=== PATIENT | female | born 1985 | race Caucasian/White ===

== ENCOUNTER 2016-07-23 16:20 | Emergency (ER) | payer OTHER ==
[~2016-07-23] VITALS: Ht 162.5 cm
[~2016-07-23 16:20] MED LIST: ALBUTEROL0.09 MG/A2 IH; DELTASONE20 M1 PO; FLONASE 0.05% 121 EA NAS; IBU-8800 MG PO; LIDEX0.05% T; MEDROL DOSEPAK4 MG PO; MOTRIN 800 MG E4 TAB PO; MOTRIN800 MG PO; MULTI VITAMINS1 TAB PO; PERCOCET 325 MG1 TA6 PO; PREDNISONE10 MG PO; PRENATAL1 TA1; PROAIR HFA8.5 GM INH; ROBAXIN750 MG PO; ZITHROMAX250 MG PO; ZYRTEC ALLERGY10 MG PO
[2016-07-23] MEDS ORDERED: POTASSIUM GLUC550 M1 PO (16:29)
== END 2016-07-23 18:33 | disposition home or self-care (01) ==
LOC: ED 16:20
DX: R51 Headache (principal); R03.0 Elevated blood-pressure reading, without diagnosis of hypertension; Z88.0 Allergy status to penicillin; Z88.1 Allergy status to other antibiotic agents; Z88.6 Allergy status to analgesic agent; Z79.899 Other long term (current) drug therapy

== ENCOUNTER → 2019-03-13 | Outpatient (CLI) | payer OTHER ==
[~2019-03-13] MED LIST changes: +POTASSIUM GLUC550 M1 PO
--- NOTE | ~2019-03-13 | EKG ---
[place], [place] ELECTROCARDIOGRAM REPORT NAME: LUCA FORDE UNIT #: [id number] ROOM: DOCTOR: EPIPHANY DRAFT REPORT BIRTHDATE: [address] [facility] Test Date: 2019-03-13 Test Time: 09:41:23 Pat Name: LUCA FORDE Department: Room: Gender: F [employer] Operator: : 1985 Requested By: THIEN BUSTAMANTE Order Number: [id number] Reading MD: Kraig Andino MD Measurements Intervals [place] Rate: 65 P: 35 ID: 106 QRS: 29 QRSD: 101 T: -1 QT: 425 QTc: 442 Interpretive Statements Sinus rhythm Short ID interval Borderline inferior Q waves No previous ECG available for comparison Electronically Signed On 03-13-2019 12:40:15 PST by Kraig Andino MD CM:EKGRPT:ELECTROCARDIOGRAM REPORT [id number] THIEN BUSTAMANTE EPIPHANY DRAFT REPORT THIEN BUSTAMANTE
== END | disposition home or self-care (01) ==
LOC: RAD 09:09
DX: I10 Essential (primary) hypertension (principal); E78.5 Hyperlipidemia, unspecified; F41.9 Anxiety disorder, unspecified; J45.909 Unspecified asthma, uncomplicated

== ENCOUNTER → 2019-04-20 | Outpatient (CLI) | payer OTHER | END | disposition home or self-care (01) | LOC: ORTHO 01:28 | DX: M25.531 Pain in right wrist (principal) ==

== ENCOUNTER 2019-09-25 01:51 | Emergency (ER) | payer OTHER ==
[~2019-09-25] VITALS: Ht 154.9 cm; Wt 74.8 kg
[2019-09-25] MEDS ORDERED: CLINDAMYCIN HC300 MG PO (02:13)
[2019-09-25] MEDS ORDERED: IBUPROFEN600 MG PO (02:13)
== END 2019-09-25 02:38 | disposition home or self-care (01) ==
LOC: ED 01:51
DX: S02.5XXA Fracture of tooth (traumatic), initial encounter for closed fracture (principal); J45.909 Unspecified asthma, uncomplicated; Z88.0 Allergy status to penicillin; Z88.1 Allergy status to other antibiotic agents; Z88.6 Allergy status to analgesic agent; Z79.899 Other long term (current) drug therapy; X58.XXXA Exposure to other specified factors, initial encounter; Y93.89 Activity, other specified; Y92.89 Other specified places as the place of occurrence of the external cause; Y99.8 Other external cause status

== ENCOUNTER 2019-10-03 20:34 | Emergency (ER) | payer OTHER ==
[~2019-10-03] VITALS: Ht 154.9 cm; Wt 74.8 kg
[~2019-10-03 20:34] MED LIST changes: +CLINDAMYCIN HC300 MG PO; +IBUPROFEN600 MG PO
== END 2019-10-03 23:32 | disposition home or self-care (01) ==
LOC: ED 20:34
DX: K08.89 Other specified disorders of teeth and supporting structures (principal); J45.909 Unspecified asthma, uncomplicated; Z88.0 Allergy status to penicillin; Z88.1 Allergy status to other antibiotic agents; Z88.6 Allergy status to analgesic agent; Z79.899 Other long term (current) drug therapy

== ENCOUNTER 2019-10-28 16:47 | Emergency (ER) | payer OTHER ==
[~2019-10-28] VITALS: Ht 154.9 cm; Wt 74.8 kg
[2019-10-28] MEDS ORDERED: TESSALON PERLE100 M1 PO (19:36)
== END 2019-10-28 19:38 | disposition home or self-care (01) ==
LOC: ED 16:47
DX: J06.9 Acute upper respiratory infection, unspecified (principal); J45.909 Unspecified asthma, uncomplicated; Z88.0 Allergy status to penicillin; Z88.1 Allergy status to other antibiotic agents; Z88.6 Allergy status to analgesic agent; Z79.899 Other long term (current) drug therapy

== ENCOUNTER → 2019-10-31 | Outpatient (CLI) | payer OTHER ==
[~2019-10-31] MED LIST changes: +TESSALON PERLE100 M1 PO
== END | disposition home or self-care (01) ==
LOC: COVID19 08:25
DX: Z11.59 Encounter for screening for other viral diseases (principal); I10 Essential (primary) hypertension; R05 Cough; R53.83 Other fatigue; Z20.828 Contact with and (suspected) exposure to other viral communicable diseases

== ENCOUNTER → 2021-01-08 | Outpatient (CLI) | payer OTHER | END | disposition home or self-care (01) | LOC: US 09:48 | PROVIDERS: ATTEND Nurse Practitioner Women's Health | DX: N93.9 Abnormal uterine and vaginal bleeding, unspecified (principal) ==

== ENCOUNTER → 2022-06-21 | Outpatient (CLI) | payer OTHER | END | disposition home or self-care (01) | LOC: LAB 12:20 | PROVIDERS: ATTEND Nurse Practitioner Family | DX: L03.011 Cellulitis of right finger (principal); R05.9 Cough, unspecified; Z77.098 Contact with and (suspected) exposure to other hazardous, chiefly nonmedicinal, chemicals ==

== ENCOUNTER → 2022-09-01 | Outpatient (CLI) | payer OTHER | END | disposition home or self-care (01) | LOC: LAB 09:04 | PROVIDERS: ATTEND Nurse Practitioner Family | DX: E87.1 Hypo-osmolality and hyponatremia (principal) ==

== ENCOUNTER → 2022-10-25 | Outpatient (CLI) | payer OTHER | END | disposition home or self-care (01) | LOC: CARD 09-27 08:30 | PROVIDERS: ATTEND Internal Medicine Cardiovascular Disease | DX: I07.1 Rheumatic tricuspid insufficiency (principal); R06.09 Other forms of dyspnea ==

== ENCOUNTER → 2024-10-22 | Outpatient (CLI) | payer OTHER | LOC: US 13:55 | PROVIDERS: ATTEND Nurse Practitioner Women's Health | DX: N93.9 Abnormal uterine and vaginal bleeding, unspecified (principal) ==